=== PATIENT | male | born 1955 | race Caucasian/White ===

== ENCOUNTER → 2018-08-31 15:49 | Outpatient (CLI) | payer BC ==
[2018-08-31 16:05] LABS: BASOPHILS 0.3 % (0-2); EOSINOPHILS 3.5 % (0-7); HEMATOCRIT 42.2 % (42.0-54.0); HEMOGLOBIN 13.8 g/dL (13.5-17.5); IMMATURE GRANULOCYTES 1.1 % (0-5); LYMPHOCYTES 16.6 % (15-50); MCH 27.9 pg (26.0-34.0); MCHC 32.7 g/dL (31.0-37.0); MCV 85.4 fL (80.0-100.0); MONOCYTES 4.6 % (2-11); NEUTROPHILS 73.9 % (40-80); PLATELET COUNT 267 10x3/uL (130-400); RBC 4.94 10x6/uL (4.20-6.10); RDW 14.6 % (11.5-14.5); WBC 9.2 10x3/uL (4.8-10.8)
[2018-08-31 16:19] LABS: ALBUMIN 1.5 g/dL (3.4-5.0); BILIRUBIN - DIRECT 0.07 mg/dL (0.00-0.30); BILIRUBIN - INDIRECT 0.23 mg/dL (0.00-1.00); BILIRUBIN - TOTAL 0.3 mg/dL (0.2-1.3); CREATININE - SERUM 0.5 mg/dL (0.6-1.3); PROTEIN - SERUM 4.1 g/dL (6.4-8.2)
== END | disposition home or self-care (01) ==
LOC: D.LABREF 15:49
PROVIDERS: Family Medicine
DX: K83.09 Other cholangitis (principal); Z51.81 Encounter for therapeutic drug level monitoring; Z79.2 Long term (current) use of antibiotics